=== PATIENT | male | born 1965 | race Two or more races ===

== ENCOUNTER 2021-08-31 12:04 | Outpatient (REF) | payer OTHER, SELFPAY ==
[2021-08-31 13:51] LABS: MANUAL DIFF FLAG NO
[2021-08-31 13:55] LABS: Basophils Percent Auto 0.3 % (0-2); Eosinophils Absolute Auto 0.1 X10*3/uL (0.0-0.4); Eosinophils Percent Auto 2.7 % (0-4); Hematocrit 44.3 % (42.0-52.0); Hemoglobin 15.4 g/dl (14.0-18.0); Lymphocytes Absolute Auto 1.2 X10*3/uL (1.2-4.9); Lymphocytes Percent Auto 39.9 % (20-40); Mean Corpuscular HGB Conc 34.8 g/dl (31.0-36.0); Mean Corpuscular Volume 89.3 fL (80.0-98.0); Mean Platelet Volume 10.7 fL (9.4-12.4); Monocytes Absolute Auto 0.2 X10*3/uL (0.1-1.2); Monocytes Percent Auto 7.9 % (2-11); Neutrophils Absolute Auto 1.4 x10*3/uL (2.0-8.3); Neutrophils Percent Auto 49.2 % (45-73); Platelet Count 227 X10*3/uL (160-400); Red Blood Count 4.96 X10*6/uL (4.60-5.80); Red Cell Distribution Width 11.7 % (11.0-16.0); White Blood Count 2.9 X10*3/uL (4.8-10.8)
[2021-08-31 14:17] LABS: Alanine Aminotransferase 28 U/L (0-40); Anion Gap 11 (12-20); Aspartate Amino Transferase 24 U/L (5-37); Blood Urea Nitrogen 14 mg/dL (9-16); Calcium 10.2 mg/dL (8.4-10.2); Carbon Dioxide 33 mmol/L (22-29); Chloride 100 mmol/L (96-108); Cholesterol 199 mg/dL; Estimated Glomerular Filt Rate > 60; Glucose Fasting 94 mg/dL (60-99); HDL Cholesterol 48 mg/dL; LDL Cholesterol Calculated 135 mg/dl; Sodium 140 mmol/L (135-145); Triglycerides 80 mg/dL
[2021-08-31 14:42] LABS: PSA,Total (Free>4and<10) 1.69 ng/mL (0.00-4.00); Vitamin D 25-OH Total 79.3 ng/mL (>30)
== END 2021-08-31 12:05 | disposition home or self-care (01) ==
LOC: HO.HMGCLDS 12:04
PROVIDERS: PCP Internal Medicine; Visit Provider Internal Medicine
DX: Z00.00 Encounter for general adult medical examination without abnormal findings (principal); D72.819 Decreased white blood cell count, unspecified; I73.00 Raynaud's syndrome without gangrene; K21.9 Gastro-esophageal reflux disease without esophagitis; R97.20 Elevated prostate specific antigen [PSA]; H54.40 Blindness, one eye, unspecified eye; Z23 Encounter for immunization; Z12.5 Encounter for screening for malignant neoplasm of prostate
CPT/HCPCS: 36415; 80048; 80061; 82306; 84153; 84450; 84460; 85025

== ENCOUNTER 2022-12-12 14:20 | Outpatient (REF) | payer OTHER, SELFPAY ==
[2022-12-12 15:10] LABS: Influenza A PCR NEGATIVE (Negative); Influenza B PCR NEGATIVE (Negative); Resp Syncy Virus RNA Qual PCR NEGATIVE (Negative); SARS COV2 PCR INHOUSE NEGATIVE (Negative)
== END 2022-12-12 14:21 | disposition home or self-care (01) ==
LOC: HO.LNP 14:20
PROVIDERS: Visit Provider Hospitalist
DX: Z20.822 Contact with and (suspected) exposure to COVID-19 (principal); B34.9 Viral infection, unspecified
CPT/HCPCS: 0241U

== ENCOUNTER 2023-02-14 14:17 | Outpatient (REF) | payer OTHER, SELFPAY ==
--- NOTE | ~2023-02-14 | MR_ITS ---
MR BRAIN WITHOUT AND WITH CONTRAST CLINICAL INFORMATION: Sensorineural hearing loss. Tinnitus. COMPARISON: None available. TECHNIQUE: Multiplanar, multisequence MRI of the brain was obtained before and after the intravenous administration of 6.5 mL of Gadavist. FINDINGS: The inner ear structures including the cochlea, vestibules, and semicircular canals exhibit preserved CSF signal intensity with no pathologic enhancement. The vestibular aqueducts are not enlarged. Cranial nerves VII and VIII complexes are normal in morphology. No enhancing CP angle/retrocochlear lesion. There is no pathologic intracranial enhancement. Mild chronic microangiopathy. No acute infarct on diffusion-weighted imaging. No intracranial hemorrhage on the gradient series. No hydrocephalus, extra-axial surface collection, or herniation. The midline intracranial structures are normal. 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 No true Chiari malformation and no significant mass effect on the cervicomedullary junction. Craniocervical junction is normal. Osseous marrow signal intensity remains homogeneous. No significant soft tissue abnormality is appreciated. MR/MR head/brain wo/w con IMPRESSION: - No retrocochlear pathology. - Mild chronic microangiopathy.
== END 2023-02-14 14:18 | disposition home or self-care (01) ==
LOC: HO.MRI 14:17
PROVIDERS: PCP Internal Medicine; Visit Provider Otolaryngology
DX: H93.11 Tinnitus, right ear (principal); H90.3 Sensorineural hearing loss, bilateral
CPT/HCPCS: 70553; A9585

== ENCOUNTER 2023-03-19 07:16 | Emergency (ER) | payer OTHER, SELFPAY ==
[2023-03-19 07:32] VITALS: BP 154/95; PULSE 63; RESP 16; TEMP 36.5; O2SAT 99; BMI 25.7
--- NOTE | 2023-03-19 07:54 | PC.NURSE ---
Addendum entered by Tiny Byrd 03/19/23 08:01: NSR on monitor. Original Note: pt axox4, VSS, respirations even and unlabored, skin warm and dry, color appropriate to ethnicity. pt reports dizziness onset today; reports nausea denies vomiting/diarrhea. pt also reports ringing of R. ear; sx similar to previous episodes. neuros intact. iv established. at bedside. pt resting in stretcher; aware of plan of care and denies having questions/concerns at this time.
[2023-03-19 07:55] LABS: MANUAL DIFF FLAG NO
[2023-03-19 07:58] LABS: Basophils Percent Auto 0.3 % (0-2); Eosinophils Absolute Auto 0.2 X10*3/uL (0.0-0.4); Eosinophils Percent Auto 6.4 % (0-4); Hematocrit 43.2 % (42.0-52.0); Hemoglobin 15.4 g/dl (14.0-18.0); Imm Gran Abs Auto 0.01 X10*3/uL (0.00-0.03); Imm Gran Pct Auto 0.3 % (0.0-0.4); Lymphocytes Absolute Auto 1.3 X10*3/uL (1.2-4.9); Mean Corpuscular HGB Conc 35.6 g/dl (31.0-36.0); Mean Corpuscular Hemoglobin 31.3 pg (27.0-33.0); Mean Corpuscular Volume 87.8 fL (80.0-98.0); Mean Platelet Volume 9.8 fL (9.4-12.4); Monocytes Absolute Auto 0.2 X10*3/uL (0.1-1.2); Neutrophils Absolute Auto 1.7 x10*3/uL (2.0-8.3); Platelet Count 197 X10*3/uL (160-400); Red Blood Count 4.92 X10*6/uL (4.60-5.80); Red Cell Distribution Width 11.6 % (11.0-16.0); White Blood Count 3.5 X10*3/uL (4.8-10.8)
[2023-03-19 08:14] LABS: Alanine Aminotransferase 25 U/L (0-40); Albumin Level 4.1 g/dL (3.5-5.0); Alkaline Phosphatase 36 U/L (39-117); Anion Gap 16 (12-20); Aspartate Amino Transferase 21 U/L (5-37); Bilirubin Total 0.7 mg/dL (0.0-1.0); Blood Urea Nitrogen 14 mg/dL (9-16); Calcium 9.7 mg/dL (8.4-10.2); Carbon Dioxide 26 mmol/L (22-29); Chloride 103 mmol/L (96-108); Creatinine Clr Calc Pharmacy 86.6; Estimated Glomerular Filt Rate > 60; Glucose Random 118 mg/dL (60-115); Potassium 3.6 mmol/L (3.3-5.1); Sodium 141 mmol/L (135-145); Total Protein 6.7 g/dL (6.5-8.0)
[2023-03-19] MEDS: Meclizine HCl 25 MG TABLET PO (08:32)
[2023-03-19] MEDS: ondansetron HCL 4 MG/2 ML VIAL IVPUSH (08:32)
[2023-03-19] MEDS: 0.9 % Sodium Chloride 1,000 ML 999 ML IV (08:33)
--- NOTE | 2023-03-19 09:56 | ED.DIZZY ---
HPI - Dizziness General Chief Complaint: Dizziness Stated Complaint: Vertigo Nausea Time Seen by Provider: 03/19/23 07:27 Source: patient Mode of arrival: ambulatory Limitations: no limitations History of Present Illness HPI Narrative: 57-year-old male who presents emergency department for evaluation of vertigo. Patient states this morning when he open his eyes the room was spinning. He states the sensation was worse with standing. He states that he also had associated nausea with no vomiting. Patient states that this is 3rd episode of positional vertigo. His 1st episode was in December of 2022 the 2nd episode was on 03/12/2023. Patient states he also has decreased hearing in his right ear with tinnitus/ringing in the right ear. He was seen by ENT and had an MRI with and without contrast looking at the inner structures and the brain. There were no retrocochlear finding and there was mild chronic microangiopathic changes noted on the MRI of the brain. Related Data Previous Rx's Medication Instructions Recorded omeprazole 20 mg capsule,delayed 20 mg PO DAILY #30 caps 03/10/21 release Allergies Allergy/AdvReac Type Severity Reaction Status Date / Time No Known Allergies Allergy Verified 12/20/22 14:04 Review of Systems Review of Systems: Yes all other systems are reviewed and are negative PMFSH Past Medical History COUNT INCLUDES THE [facility] Narrative: Social history: He is , his Adeline is here in the emergency department with him. Patient denies tobacco use. He states he drinks on average 1 beer a day. He denies drug use. Medical History Blind left eye Chronic leukopenia Elevated PSA GERD without esophagitis Raynauds phenomenon Surgical History Hx of colonoscopy Hx of vasectomy Family History Family History Mother Breast cancer Diabetes mellitus Myocardial infarction Alzheimer's disease Brother Alcoholism Social History Social History Housing: House Alcohol intake: current Alcohol intake frequency: 0-2 drinks per day Alcohol type: beer Patient Tobacco Use Status: Never used Tobacco Smoked in Last 30 Days: No e-Cigarette/Vaping Use: Never Used Use of substances other than those prescribed or required for medical reasons: No Advance Directives: No service: No Current occupational status: employed Cognitive needs: No Hearing needs: No Vision needs: No Physical Exam Vital Signs: Vital Signs: Last Vital Signs Temp 97.7 F 03/19/23 07:32 Pulse 63 03/19/23 07:32 Resp 16 03/19/23 07:32 BP 154/95 H 03/19/23 07:32 Pulse Ox 99 03/19/23 07:32 O2 Del Method Room Air 03/19/23 07:32 BMI result Body Mass Index 25.7 Const: Other: Awake, alert, male patient, pleasant, cooperative, does appear to be in distress secondary to his vertigo, with minimal movement of his head has significant room spinning sensation Orientation/consciousness: oriented to person and oriented to place HEENT: Head: Yes normal to inspection, Yes normocephalic and Yes atraumatic Ears: external ears normal General nose exam: Normal external nose present Face and sinus: Yes normal facial exam Mouth: Normal oral and palatal mucosa present Throat: Yes posterior oropharynx normal Eyes: General: appearance normal, both eyes and all related structures Pupils: Equal, round and reactive pupils present Neck: Neck: Yes normal visual inspection, Yes no lymphadenopathy, Yes trachea midline and Yes supple Chest: Chest palpation & inspection: normal inspection of the chest and normal palpation of entire chest wall Resp: Effort & Inspection: normal respiratory effort and able to speak in complete sentences Auscultation: clear to auscultation bilaterally Cardio: Rate: regular rate Rhythm: regular rhythm Heart sounds: S1 normal heart sound present, S2 normal heart sound present and no murmurs GI: Inspection: Yes normal to inspection Palpation (GI): Soft to palpation, nontender and no guarding Auscultation: normal bowel sounds : General: Yes no CVA tenderness Back/Spine/Pelvis: Back: no CVA tenderness Skin: General skin exam: no rashes or lesions noted Neuro: General: oriented to person and oriented to place Cranial nerves: Yes CN's II-XII intact bilaterally and Yes Equal, round and reactive pupils present Cognition (Neuro): normal cognition Motor exam (neuro): 5/5 motor strength present throughout Coordination: [id number] test normal and [id number] test normal Extrem: General: Yes normal to inspection Psych: Appearance: grossly normal Speech and movement: Normal speech and movement present Affect: normal affect Attitude: cooperative Medications Administered Discontinued Medications Generic Name Dose Route Start Last Admin Trade Name Keerthi PRN Reason Stop Dose Admin Sodium Chloride 1,000 mls @ 999 mls/hr 03/19/23 07:41 03/19/23 08:33 Ns IV 03/19/23 08:41 999 mls/hr .Q1H1M STA Administration Meclizine HCl 25 mg 03/19/23 07:41 03/19/23 08:32 Meclizine Hcl 25 Mg Tablet PO 03/19/23 07:42 25 mg ONCE STA Administration Ondansetron HCl 4 mg 03/19/23 07:41 03/19/23 08:32 Ondansetron Hcl 4 Mg/2 Ml Vial IVPUSH 03/19/23 07:42 4 mg ONCE ONE Administration Medical Decision Making Medical Decision Making [facility] Narrative: 57-year-old male patient who presents emergency department for evaluation of episodic vertigo triggered by position change. This is the patient's 3rd episode. Patient woke up this morning and with minimal movement of his head while he was in bed he had a room spinning sensation. The patient also has decreased hearing in his right ear with tinnitus in his right ear and has been evaluated by ENT, he had a negative MRI of the brain and your structures. Patient's presentation is consistent with benign positional vertigo. Patient was given meclizine 25 mg orally, Zofran 4 mg IV. He was also ordered to get normal saline x1 L. I ordered a laboratory evaluation to include CBC and CMP. 1017: The patient's laboratory evaluation was unremarkable. Patient did get some improvement with the above treatment but still has vertigo symptoms therefore I ordered Ativan 0.5 mg IV. Patient will be discharged home and advised to take meclizine 25 mg 3 times a day for the next 3-4 days and then as needed He was also prescribe Zofran ODT 4 mg every 6 hours as needed for nausea and vomiting. I did advised to follow-up with his ENT physician for re-evaluation and to discus further treatment inverted, consider hydrochlorothiazide 25 mg daily to see if this improves symptoms if they become more chronic. Differential Diagnosis Differential Diagnoses: The differential diagnosis associated with the presentation includes Differential diagnosis includes was not limited to benign positional vertigo, Meniere's disease, electrolyte abnormality, anemia, cerebellar stroke Admission/Observation Consideration of admission/observation: Escalation of care including admission/observation considered Lab Data MDM Lab Attestation statement: I reviewed the patient's lab results. My interpretation patient's laboratory evaluation is as follows: WBC low at 3.5-this is chronic. Glucose elevated 118. There is no anemia or other significant electrolyte/LFT abnormalities. 03/19/23 07:51 03/19/23 07:51 Labs: Lab Results 03/19/23 03/19/23 Range/Units 07:51 07:51 WBC 3.5 L (4.8-10.8) X10*3/uL RBC 4.92 (4.60-5.80) X10*6/uL Hgb 15.4 (14.0-18.0) g/dl Hct 43.2 (42.0-52.0) % MCV 87.8 (80.0-98.0) fL MCH 31.3 (27.0-33.0) pg MCHC 35.6 (31.0-36.0) g/dl RDW 11.6 (11.0-16.0) % Plt Count 197 (160-400) X10*3/uL MPV 9.8 (9.4-12.4) fL Immature Gran % (Auto) 0.3 (0.0-0.4) % Neut % (Auto) 48.0 (45-73) % Lymph % (Auto) 38.0 (20-40) % [place] % (Auto) 7.0 (2-11) % Eos % (Auto) 6.4 H (0-4) % Baso % (Auto) 0.3 (0-2) % Lymph # (Auto) 1.3 (1.2-4.9) X10*3/uL [place] # (Auto) 0.2 (0.1-1.2) X10*3/uL Eos # (Auto) 0.2 (0.0-0.4) X10*3/uL Baso # (Auto) 0.0 (0.0-0.2) X10*3/uL Abs Immat Gran (auto) 0.01 (0.00-0.03) X10*3/uL Absolute Neuts (auto) 1.7 L (2.0-8.3) x10*3/uL Absolute Nucleated RBC 0.000 (0.0-0.012) X10*3/uL Nucleated RBC % (auto) 0.0 (0.0-0.2) /100WBC Sodium 141 (135-145) mmol/L Potassium 3.6 (3.3-5.1) mmol/L Chloride 103 (96-108) mmol/L Carbon Dioxide 26 (22-29) mmol/L Anion Gap 16 (12-20) BUN 14 (9-16) mg/dL Creatinine 0.89 (0.5-1.4) mg/dL Estim Creat Clear Calc 86.6 Estimated GFR > 60 Random Glucose 118 H (60-115) mg/dL Calcium 9.7 (8.4-10.2) mg/dL Total Bilirubin 0.7 (0.0-1.0) mg/dL AST 21 (5-37) U/L ALT 25 (0-40) U/L Alkaline Phosphatase 36 L (39-117) U/L Total Protein 6.7 (6.5-8.0) g/dL Albumin 4.1 (3.5-5.0) g/dL Discharge Plan Discharge Clinical Impression: Vertigo Tinnitus Qualifiers: Laterality: right Qualified Code(s): H93.11 - Tinnitus, right ear Meniere's disease Qualifiers: Laterality: right Qualified Code(s): H81.01 - Meniere's disease, right ear Patient Disposition: Home, Self-Care Instructions: Meniere Disease (ED) Additional Instructions: Your treated in the emergency department with with meclizine 25 mg orally, Zofran 4 mg IV and lorazepam 0.5 mg IV Your blood work was unremarkable. Take meclizine 25 mg pills, 1 pill every 6 hours for the next 4 day then every 6 hours as needed for dizziness. This is an [id number] medication Take Zofran ODT 4 mg pills, 1 pill dissolved in your mouth every 8 hours as needed for nausea and vomiting. You should follow-up with your ENT physician to discuss further treatment of your positional vertigo, hearing loss and ringing in the ear (tinnitus) Sometimes hydrochlorothiazide 25 mg once a day can help reduce recurrence of positional vertigo. Ask your ENT physician if this is a treatment that they would recommend for you. Follow-up with your doctor in 2 days. Please return to the emergency department if your symptoms get worse or if you develop any symptoms that are concerning to you. Prescriptions: No Action omeprazole 20 mg capsule,delayed release(DR/EC) 20 mg PO DAILY Qty: 30 0RF
== END 2023-03-19 11:19 | disposition home or self-care (01) ==
PROVIDERS: Emergency Provider Emergency Medicine Emergency Medical Services; PCP Internal Medicine
DX: H81.01 Meniere's disease, right ear (principal); H93.11 Tinnitus, right ear; Z79.899 Other long term (current) drug therapy
CPT/HCPCS: 36415; 80053; 85025; 96361; 96374; 99284; J2405

== ENCOUNTER 2023-06-07 12:28 | Outpatient (AMB) | payer OTHER, SELFPAY ==
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
[2023-06-07 12:12] VITALS: BP 127/76; PULSE 69; O2SAT 97; BMI 23.9
== END 2023-06-07 13:27 | disposition home or self-care (01) ==
PROVIDERS: Visit Provider Internal Medicine
DX: Z00.01 Encounter for general adult medical examination with abnormal findings (principal); D72.819 Decreased white blood cell count, unspecified; E78.5 Hyperlipidemia, unspecified; M77.11 Lateral epicondylitis, right elbow; M25.512 Pain in left shoulder; H54.40 Blindness, one eye, unspecified eye; H90.5 Unspecified sensorineural hearing loss
CPT/HCPCS: 99396

== ENCOUNTER 2024-06-23 10:51 | Outpatient (AMB) | payer OTHER, SELFPAY ==
--- NOTE | 2024-06-23 11:39 | A.OFFPC_ITS ---
Vital Signs 06/23/24 11:41 Height 5 ft 7 in Weight 149 lb BMI 23.3 BP 122/88 Blood Pressure Location Rt brachial Position Sitting Pulse 67 Pulse Source Pulse Oximeter Pulse Oximetry (%) 97 Oxygen Delivery Method Room Air Intake Visit Reasons: Annual PE Intake Note: Pt is here today for his PE Allergies No Known Allergies Allergy (Verified 06/23/24 11:46) Medication List - Last Reconciled 06/23/24 by Sasha Elizalde MD cholecalciferol (vitamin D3) 125 mcg PO DAILY omega 6-bqe-igy-fish oil 60-90-500 mg (Fish Oil) 1 cap PO DAILY omeprazole 40 mg PO DAILY Tobacco use date assessed: 06/23/24 Dental Screening Dental Screen Date: 06/23/24 Did you have a dental visit in the last 12 months?: Yes Did you have a dental problem in the last 6 months where you did not have access to dental care?: No Was dental information given to patient?: Patient has dentist HPI Annual PE HPI Details 58-year-old male with past medical histo ry for right-sided sensorineural hearing loss, dyslipidemia, blind in his left eye, chronic leukopenia, and GERD without esophagitis, here today for physical exam. Up-to-date with his screening colonoscopy ,done in [address] Go , with negative findings, repeat in 2027 Currently taking omeprazole 40 mg daily for chronic gastroesophageal reflux disease as seen on upper endoscopy done in 2019 Was seen by ENT last year referred for sensory neuro hearing loss and intermittent episodes of lightheadedness. MRI of the brain and internal auditory canal showed no intracranial ordered book cochlear pathology. Patient was supposed to be referred for hearing evaluation for heating in the right ear which would help restore asymmetry and help him with spatial awareness and orientation. Patient however has not heard from them since regarding an appointment and he has tried calling them and only was able to leave messages on the answering machine twice. Would like a referral back for further evaluation management. [facility] Medical History (Updated 06/23/24 @ 12:02 by Sasha Elizalde MD) Varicose veins of left lower extremity with pain Right-sided sensorineural hearing loss Dyslipidemia Blind left eye Elevated PSA Chronic leukopenia Raynauds phenomenon GERD without esophagitis Surgical History Hx of vasectomy Hx of colonoscopy Family History Mother Breast cancer Diabetes mellitus Myocardial infarction Alzheimer's disease Brother Alcoholism Social History Housing: House Alcohol intake: current Alcohol intake frequency: 0-2 drinks per day Alcohol type: beer Patient Tobacco Use Status: Never used Tobacco e-Cigarette/Vaping Use: Never Used service: No Current occupational status: employed Cognitive needs: No Hearing needs: No Vision needs: No Questionnaire PHQ-9 Over the last 2 weeks, how often have you been bothered by any of the following problems? 1. Little interest or pleasure in doing things: not at all 2. Feeling down, depressed, or hopeless: not at all 3. Trouble falling or staying asleep, or sleeping too much: not at all 4. Feeling tired or having little energy: not at all 5. Poor appetite or overeating: not at all 6. Feeling bad about yourself - or that you are a failure or have let yourself or your family down: not at all 7. Trouble concentrating on things, such as reading the newspaper or watching television: not at all 8. Moving or speaking so slowly that other people could have noticed. Or the opposite - being so fidgety or restless that you have been moving around a lot more than usual: not at all 9. Thoughts that you would be better off or of hurting yourself in some way: not at all Total score: 0 Depression Screening Interpretation: Negative Depression Screening Done: Yes 47375 - PHQ-9 Billing: Yes Source: Developed by Drs. Lester Means, Yuridia Peres, Martin Snyder and colleagues, with an educational nisha from [employer]. Thrive Questionnaire Date Thrive assessed: 06/23/24 I am a: Patient What is your living situation today?: I have a steady place to live Within the past 12 months, did the food you bought not last and you didn't have the money to get more?: Never true Within the past 12 months, did you worry whether your food would run out before you got money to buy more?: Never true Do you have trouble paying for medicines?: No Do you have trouble getting transportation to medical appointments?: No Do you have trouble paying your heating and electricity bill?: No Do you have trouble taking care of your child, family member or friend?: No Do you have trouble with day-to-day activities such as bathing, preparing meals, shopping, managing finances, etc.?: No Are you interested in more education?: I choose not to answer this question Please select the resources that you would like help with: None Currently or been in a relationship where the following occur: No concerns reported THRIVE Score: 0 AUDIT C Alcohol Use Questionnaire (AUDIT-C) 1. How often do you have a drink containing alcohol?: 2-3 times a week 2. How many drinks containing alcohol do you have on a typical day when you are drinking?: 1 or 2 3. How often do you have six or more drinks on one occasion?: Less than monthly Total Score: 4 MAYURI-7 AMB Questionnaire MAYURI-7 Date MAYURI - 7 assessed: 06/23/24 Feeling nervous, anxious, or on edge: 0 = Not at all Not being able to stop or control worryin = Not at all Worrying too much about different things: 0 = Not at all Trouble relaxin = Not at all Being so restless that it is hard to sit still: 0 = Not at all Becoming easily annoyed or irritable: 0 = Not at all Feeling afraid as if something awful might happen: 0 = Not at all Total MAYURI-7 score (0-4 normal; 5-9 mild; 10-14 moderate; 15-21 severe): 0 Source: Developed by Drs. Lester Means, Yuridia Peres, Martin Snyder and colleagues, with an educational nisha from [employer]. MAYURI-7 Assessment Billing MAYURI-7 Assessment Tool: MAYURI-7 Assessment 85574 Review of Systems Const Denies body aches, Denies fatigue, Denies fever(s), Denies headache(s) and Denies weakness Eyes Details: Blind left eye due to trauma Denies eye discharge and Denies itchy eyes ENT Reports as per HPI, Reports dizziness (Occasional), Denies headache(s), Denies nasal congestion, Denies nasal discharge and Denies sore throat Card Denies chest pain, Denies palpitations and Denies dyspnea Resp Denies chest congestion, Denies cough, Denies dyspnea and Denies wheezing GI Denies abdominal pain, Denies change in bowel habits and Denies heartburn Denies dysuria, Denies urinary frequency and Denies urinary urgency Musc Reports no additional complaints Skin/Breast Denies lesions and Denies rash Neuro Reports dizziness (Occasional), Denies headache(s) and Denies weakness Psych Reports no additional complaints Endo Denies fatigue, Denies polydipsia, Denies polyuria and Denies palpitations Farrukh/Lymph Denies easy bruising Aller/Immun Denies itchy eyes, Denies seasonal rhinorrhea and Denies wheezing Physical exam (Primary Care) Vital Signs: Last Vital Signs Pulse 67 06/23/24 11:41 BP 122/88 06/23/24 11:41 Pulse Ox 97 06/23/24 11:41 Oxygen Delivery Method Room Air 06/23/24 11:41 BMI result Body Mass Index 23.3 Tobacco/Smoking Status: Tobacco use Status Tobacco use date assessed 06/23/24 06/23/24 11:45 Patient Tobacco Use Status Never used Tobacco 06/23/24 11:45 e-Cigarette/Vaping Use Never Used 06/23/24 11:45 PHQ-9: PHQ-9 Score PHQ-9: Total score 0 06/26/24 14:33 Depression Screening Interpretation: Negative Thrive Assessment: Date of Thrive Assessment Date Thrive assessed 06/23/24 06/23/24 11:45 Currently or been in a relationship where the following occur: No concerns reported Advance Care Planning discussion: Completed/Scanned Date of discussion: 06/23/24 Who was present: patient Forms completed: Health Care Proxy Time spent: 16-45 minutes Actual minutes spent: 15 Const Orientation/consciousness: patient oriented x3 HENMT Ears: external ears normal, TM's normal bilaterally, EAC's normal and hearing grossly impaired on the right Face and sinus: Yes face symmetric Mouth: Normal oral and palatal mucosa present, oropharynx normal and moist mucous membranes Eyes Other: left cornea opacified , EOM full on right , Periorbital: periorbital findings normal Eyelids: Yes eyelids normal Conjunctivae: conjunctivae normal Sclerae: sclerae normal Neck Other: Supple , no lymphadenopathy palpated thyroid gland nonpalpable Chest Chest palpation & inspection: normal inspection of the chest Resp Auscultation: clear to auscultation bilaterally Cardio Other: S1-S2 present regular rate and rhythm GI Inspection: Yes normal to inspection Palpation (GI): Soft to palpation, nontender, no guarding and no masses Auscultation: normal bowel sounds Male General Exam: Yes normal external exam Back/Spine/Pelvis Back: No back tenderness Skin General skin exam: no rashes or lesions noted Neuro General: patient oriented x3, gait normal, tone normal, moves all extremities and no focal motor deficits Cranial nerves: Yes CN's II-XII intact bilaterally Cognition (Neuro): normal cognition Gait exam (Neuro): Normal gait present Motor exam (neuro): 5/5 motor strength present throughout Sensory Exam: double simultaneous stimulation for sensation normal Extrem Other: Engorged varicose veins on lateral aspect of left lower extremity, General: Yes normal to inspection, Yes full ROM, Yes no joint enlargement, Yes no pedal edema, Yes no calf tenderness and Yes normal gait Right upper extremity: no joint enlargement and elbow/forearm Details: tenderness Location: of the lateral epicondyle Left upper extremity: elbow/forearm Psych Appearance: grossly normal and well kempt Mental Status: mental status grossly normal Speech and movement: Normal speech and movement present Affect: normal affect Attitude: cooperative Thought process: Normal thought process present Thought content: Normal thought content present Coding Level of Care Code Est Pt Prev Care 40-64y(32411) Diagnoses Annual visit for general adult medical examination with abnormal findings Z00. GERD without esophagitis K21.9 Dyslipidemia E78.5 Sensorineural hearing loss (SNHL) of right ear, unspecified hearing status on contralateral side H90.5 Contralateral hearing status: unspecified Varicose veins of left lower extremity with pain I83.812 Intermittent lightheadedness R42 Additional Codes MAYURI-7 Assessment Billing - MAYURI-7 Assessment Tool: MAYURI-7 Assessment 77588 ([id number]) Vital Signs *Quality* - Advance Care Planning discussion: Completed/Scanned ([id number]) Vital Signs *Quality* - Time spent: 16-45 minutes ([id number]) Assessment & Plan Assessment & Plan (1) Annual visit for general adult medical examination with abnormal findings: Code(s): Z00.01 - Encounter for general adult medical examination with abnormal findings Plan: Will check appropriate labs up-to-date with regular dental visit every [address] Henderson for his regular eye exams. Take adequate calcium in diet and vitamin-D 3 at 2000 IU per cap once a day, in addition to weight- bearing exercises to help maintain good muscle tone and weight control. Instructed to do self testicular exam check for any mass. Up-to-date with his screening colonoscopy done in 2019. Up-to-date with Tdap and has had 1 pneumococcal vaccine but does not want to get flu or COVID vaccination, declines shingles vaccines to (2) GERD without esophagitis: Code(s): K21.9 - Gastro-esophageal reflux disease without esophagitis Category: Medical Plan: Taking omeprazole only as needed for heartburn symptoms (3) Dyslipidemia: Code(s): E78.5 - Hyperlipidemia, unspecified Category: Medical Plan: Fasting lipid panel ordered, continue Rupert 3 fatty acid supplement, reinforced importance of following a low-cholesterol diet. (4) Right-sided sensorineural hearing loss: Code(s): H90.5 - Unspecified sensorineural hearing loss Category: Medical Qualifiers: Contralateral hearing status: unspecified Qualified Code(s): H90.5 - Unspecified sensorineural hearing loss Plan: Referred back to Dr. Gunter for further evaluation management (5) Varicose veins of left lower extremity with pain: Code(s): I83.812 - Varicose veins of left lower extremity with pain Category: Medical Plan: Vascular consult ordered (6) Intermittent lightheadedness: Code(s): R42 - Dizziness and giddiness Plan: Referral back to ENT for further evaluation manage Orders: Orders Basic Metabolic Panel Fasting 06/23/24 E78.5 - Hyperlipidemia, unspecified, H90.5 - Unspecified sensorineural hearing loss, K21.9 - Gastro-esophageal reflux disease without esophagitis, Z00.01 - Encounter for general adult medical examination with abnormal findings, Z12.5 - Encounter for screening for malignant neoplasm of prostate, Z13.1 - Encounter for screening for diabetes mellitus Lipid Panel 06/23/24 E78.5 - Hyperlipidemia, unspecified, H90.5 - Unspecified sensorineural hearing loss, K21.9 - Gastro-esophageal reflux disease without esophagitis, Z00.01 - Encounter for general adult medical examination with abnormal findings, Z12.5 - Encounter for screening for malignant neoplasm of prostate, Z13.1 - Encounter for screening for diabetes mellitus PSA,Total (Free>4and<10) 06/23/24 E78.5 - Hyperlipidemia, unspecified, H90.5 - Unspecified sensorineural hearing loss, K21.9 - Gastro-esophageal reflux disease without esophagitis, Z00.01 - Encounter for general adult medical examination with abnormal findings, Z12.5 - Encounter for screening for malignant neoplasm of prostate, Z13.1 - Encounter for screening for diabetes mellitus Complete Blood Count Auto Diff 06/23/24 E78.5 - Hyperlipidemia, unspecified, H90.5 - Unspecified sensorineural hearing loss, K21.9 - Gastro-esophageal reflux disease without esophagitis, Z00.01 - Encounter for general adult medical examination with abnormal findings, Z12.5 - Encounter for screening for malignant neoplasm of prostate, Z13.1 - Encounter for screening for diabetes mellitus Vitamin D 25-OH Total 06/23/24 E78.5 - Hyperlipidemia, unspecified, H90.5 - Unspecified sensorineural hearing loss, K21.9 - Gastro-esophageal reflux disease without esophagitis, Z00.01 - Encounter for general adult medical examination with abnormal findings, Z12.5 - Encounter for screening for malignant neoplasm of prostate, Z13.1 - Encounter for screening for diabetes mellitus Referrals Vascular Surgery Referral I83.812 - Varicose veins of left lower extremity with pain Ear/Nose/Throat Referral H90.5 - Unspecified sensorineural hearing loss, R42 - Dizziness and giddiness
[2024-06-23 11:41] VITALS: BP 122/88; PULSE 67; O2SAT 97; BMI 23.3
== END 2024-06-23 12:08 | disposition home or self-care (01) ==
PROVIDERS: PCP Internal Medicine; Visit Provider Internal Medicine
DX: Z00.01 Encounter for general adult medical examination with abnormal findings (principal); K21.9 Gastro-esophageal reflux disease without esophagitis; E78.5 Hyperlipidemia, unspecified; H90.5 Unspecified sensorineural hearing loss; I83.812 Varicose veins of left lower extremity with pain; R42 Dizziness and giddiness; Z00.00 Encounter for general adult medical examination without abnormal findings

== ENCOUNTER → 2024-06-23 10:51 | Outpatient (BNVA) | payer OTHER, SELFPAY | PROVIDERS: PCP Internal Medicine; Visit Provider Internal Medicine | DX: Z00.01 Encounter for general adult medical examination with abnormal findings (principal); K21.9 Gastro-esophageal reflux disease without esophagitis; E78.5 Hyperlipidemia, unspecified; H90.5 Unspecified sensorineural hearing loss; I83.812 Varicose veins of left lower extremity with pain; R42 Dizziness and giddiness | CPT/HCPCS: 96127 ==

== ENCOUNTER 2024-06-23 12:12 | Outpatient (REF) | payer OTHER, SELFPAY ==
[2024-06-23 13:25] LABS: MANUAL DIFF FLAG NO
[2024-06-23 13:36] LABS: Basophils Percent Auto 1.1 % (0-2); Eosinophils Absolute Auto 0.1 X10*3/uL (0.0-0.4); Hematocrit 48.7 % (42.0-52.0); Hemoglobin 16.6 g/dl (14.0-18.0); Lymphocytes Absolute Auto 1.2 X10*3/uL (1.2-4.9); Lymphocytes Percent Auto 42.4 % (20-40); Mean Corpuscular HGB Conc 34.1 g/dl (31.0-36.0); Mean Corpuscular Hemoglobin 30.7 pg (27.0-33.0); Mean Corpuscular Volume 90.2 fL (80.0-98.0); Mean Platelet Volume 10.5 fL (9.4-12.4); Monocytes Absolute Auto 0.2 X10*3/uL (0.1-1.2); Monocytes Percent Auto 8.9 % (2-11); Neutrophils Absolute Auto 1.2 x10*3/uL (2.0-8.3); Neutrophils Percent Auto 44.6 % (45-73); Platelet Count 241 X10*3/uL (160-400); Red Cell Distribution Width 11.6 % (11.0-16.0); White Blood Count 2.7 X10*3/uL (4.8-10.8)
[2024-06-23 14:28] LABS: Anion Gap 11 (12-20); Blood Urea Nitrogen 10 mg/dL (9-16); Calcium 10.4 mg/dL (8.4-10.2); Carbon Dioxide 32 mmol/L (22-29); Chloride 102 mmol/L (96-108); Cholesterol 210 mg/dL (<200); Estimated Glomerular Filt Rate > 60; Glucose Fasting 103 mg/dL (60-99); HDL Cholesterol 49 mg/dL (>40); LDL Cholesterol Calculated 139 mg/dL (<100); PSA,Total (Free>4and<10) 1.65 ng/mL (0.00-4.00); Potassium 3.9 mmol/L (3.3-5.1); Sodium 141 mmol/L (135-145); Triglycerides 113 mg/dL (<150); Vitamin D 25-OH Total > 154.2 ng/mL (>30)
== END 2024-06-23 12:13 | disposition home or self-care (01) ==
LOC: HO.HMGCLDS 12:12
PROVIDERS: PCP Internal Medicine; Visit Provider Internal Medicine
DX: Z00.01 Encounter for general adult medical examination with abnormal findings (principal); E78.5 Hyperlipidemia, unspecified; H90.5 Unspecified sensorineural hearing loss; K21.9 Gastro-esophageal reflux disease without esophagitis; Z13.1 Encounter for screening for diabetes mellitus; Z12.5 Encounter for screening for malignant neoplasm of prostate
CPT/HCPCS: 36415; 80048; 80061; 82306; 84153; 85025

== ENCOUNTER 2024-07-09 10:17 | Outpatient (AMB) | payer OTHER, SELFPAY ==
--- NOTE | 2024-07-09 10:18 | MHC.OFFVIS ---
Intake Visit Reasons: [facility] referral for VV of left LE w/ pain Intake Note: New patient presents for VV of LE w/pain. Patient states he has a dull pain on his left leg as well as cramping. Allergies No Known Allergies Allergy (Verified 07/09/24 10:20) HPI HPI [facility] referral for VV of left LE w/ pain: Details: Shaq is presenting today as a referral from his PCP for varicose veins, left more than right. He states this has been going on for months, possibly years now. He states most recently is been more crampy and achy. It has been affecting their daily activities including working and standing. He denies any swelling of his lower extremities. It is noted more so in left leg. He does work at nights, standing the entire time. He is a nonsmoker and nondiabetic. He does have a history of Raynaud's, but states it is under control and a minimal case. Patient denies any previous venous surgery or injections. Patient denies any history of DVT/ PE. Patient denies any history of phlebitis. Trial of compression includes - nothing yet. They now present for vascular evaluation regarding their varicose veins. [facility] Medical History Varicose veins of left lower extremity with pain Right-sided sensorineural hearing loss Dyslipidemia Blind left eye Elevated PSA Chronic leukopenia Raynauds phenomenon GERD without esophagitis Surgical History Hx of vasectomy Hx of colonoscopy Family History Mother Breast cancer Diabetes mellitus Myocardial infarction Alzheimer's disease Brother Alcoholism Social History Housing: House Alcohol intake: current Alcohol intake frequency: 0-2 drinks per day Alcohol type: beer Patient Tobacco Use Status: Never used Tobacco e-Cigarette/Vaping Use: Never Used service: No Current occupational status: employed Cognitive needs: No Hearing needs: No Vision needs: No Review of Systems Const Reports as per HPI and Denies weakness ENT Reports Normal hearing present and Denies dizziness Card Reports as per HPI, Denies chest pain, Denies chest pain at rest, Denies chest pain with activity, Denies dyspnea and Denies dyspnea on exertion Resp Reports as per HPI, Denies cough, Denies dyspnea and Denies dyspnea on exertion GI Reports as per HPI, Denies abdominal pain, Denies nausea and Denies vomiting Musc Denies numbness Skin/Breast Reports as per HPI, Denies erythema and Denies wounds Neuro Reports Normal hearing present, Denies dizziness, Denies numbness, Denies Sensory deficit (Neuro) and Denies weakness Psych Reports no additional complaints Endo Reports no additional complaints Physical Exam Const General: healthy appearing and no acute distress Orientation/consciousness: patient oriented x3 HEENT Head: Yes normal to inspection Ears: hearing grossly normal bilaterally Mouth: Normal oral and palatal mucosa present Resp Effort & Inspection: normal respiratory effort and able to speak in complete sentences Auscultation: clear to auscultation bilaterally Cardio Jugular venous distension: no JVD Rate: regular rate Rhythm: regular rhythm Heart sounds: S1 normal heart sound present and S2 normal heart sound present Bruits: no abdominal aortic bruits, no carotid bruits, no femoral bruits and no renal bruits Peripheral pulses: Peripheral pulses 2+ throughout GI Inspection: Yes normal to inspection Palpation (GI): No Abdominal aortic bruit present Skin General skin exam: no rashes or lesions noted Wounds: no wounds Hair: normal Neuro General: patient oriented x3 Cranial nerves: Yes Normal hearing present Cognition (Neuro): normal cognition Gait exam (Neuro): Normal gait present Motor exam (neuro): 5/5 motor strength present throughout Sensory Exam: No Sensory deficit (Neuro) Extrem Other: Left lower extremity: Significant tortuosity noted mid thigh medially extending down past the knee towards the lateral aspect of the mid smart. Not painful to palpation. Slight discoloration noted to the lower extremity. CEAP: C - 4 E - primary A - superficial P - reflux General: Yes normal to inspection, Yes full ROM, Yes capillary refill normal and Yes normal gait Assessment & Plan Assessment & Plan (1) Varicose veins of both lower extremities with inflammation: Code(s): I83.11 - Varicose veins of right lower extremity with inflammation; I83.12 - Varicose veins of left lower extremity with inflammation Category: Medical Plan: Shaq is presenting today with concerns for varicose veins which are now causing discomfort in pain. In short, the patient has evidence of venous insufficiency. I have discussed the pathophysiology with the patient. In addition I have provided informational material regarding venous disease to the patient. We have discussed conservative measures including compression, elevation, and exercise. I have also provided a handout regarding appropriate use of compression stockings and where to purchase good compression stockings as well. We discussed the importance of elevation (putting a pillow under his feet when sleeping during the day) and wearing compression stockings, especially at work when he is standing all night. I have taken the liberty of ordering venous insufficiency testing with the patient. They will follow up with me after testing. The patient had an opportunity to ask questions regarding the treatment plan. All questions were answered. No major barriers to understanding were identified. The patient expressed understanding and agreement with the above treatment plan. The patient is aware they should contact our office by phone for worsening of the current condition or the appearance of new symptoms. Thank you for allowing me to participate in the vascular care of this patient. If you have any questions or concerns regarding the treatment for the above condition please do not hesitate to contact me. The office telephone contact is [phone]. This note is constructed using voice recognition software. While every effort has been made to ensure accuracy, company tanker truck driver errors may have been included. Thank you for allowing me to participate in the care of your patient. Yours sincerely, BELÉN Owens Coding Level of Care Code New Pt New Pt Level 4 (15738) Patient Type New Diagnoses Varicose veins of both lower extremities with inflammation I83.11; I83.12
== END 2024-07-09 10:33 | disposition home or self-care (01) ==
LOC: HO.HVS 10:18
PROVIDERS: PCP Internal Medicine; Visit Provider Physician Assistant Surgical
DX: I83.11 Varicose veins of right lower extremity with inflammation (principal); I83.12 Varicose veins of left lower extremity with inflammation
CPT/HCPCS: 99204

== ENCOUNTER → 2024-07-09 10:17 | Outpatient (BNVA) | payer OTHER, SELFPAY | PROVIDERS: PCP Internal Medicine; Visit Provider Physician Assistant Surgical ==

== ENCOUNTER 2024-07-30 10:17 | Outpatient (REF) | payer OTHER, SELFPAY ==
--- NOTE | ~2024-07-30 | US_ITS ---
EXAMINATION: US VENOUS BILATERAL LOWER EXTREMITIES (REFLUX EXAM) CLINICAL INDICATION: Leg pain and varicose veins. COMPARISON: None available. TECHNIQUE: Color-flow triplex imaging and compression Doppler was performed to evaluate both the deep and the superficial systems bilaterally. To evaluate the superficial system, the examination was performed in the upright position. Color-flow Doppler ultrasound and compression ultrasound were utilized. In addition, maneuvers were utilized to demonstrate reflux. FINDINGS: 1. DEEP VENOUS ULTRASOUND OF THE RIGHT LOWER EXTREMITY: Respiratory variation, normal compression and augmented flow are noted in the right common femoral vein as well as the right popliteal vein and there is no evidence of deep venous thrombosis at these locations. There is no evidence of reflux in the deep system in either the common femoral vein or the popliteal vein. There is no evidence of a Parmar's cyst. 2. SUPERFICIAL ULTRASOUND WITH DOPPLER OF RIGHT LOWER EXTREMITY: The right great saphenous vein at the saphenofemoral junction measures 4 mm, at the proximal thigh 2 mm, at the mid thigh 2 mm, above the knee 2 mm, at the knee 2 mm, [id number] 2 mm, midcalf 2 mm and at the ankle measures 3 mm. Reflux is demonstrated in the mid thigh and [id number]-efq-gaic for 0.8 seconds. Duplicated Right Great Saphenous Vein: None. The right small saphenous vein measures 7 mm and shows no reflux. Accessory Vein of Giacomini: None. Incompetent Perforators: None. Varices Present: None. 3. DEEP VENOUS ULTRASOUND OF THE LEFT LOWER EXTREMITY: Respiratory variation, normal compression and augmented flow are noted in the left common femoral vein as well as the left popliteal vein and there is no evidence of deep venous thrombosis at these locations. There is no evidence of reflux in the deep system in either the common femoral vein or the popliteal vein. There is no evidence of a Parmar's cyst. 4. SUPERFICIAL ULTRASOUND WITH DOPPLER OF LEFT LOWER EXTREMITY: Left great saphenous vein at the saphenofemoral junction measures 6 mm, at the proximal thigh 5 mm, at the mid thigh 4 mm, above the knee 2 mm, at the knee 2 mm, [id number] 2 mm, midcalf 2 mm and at the ankle measures 3 mm. Reflux is present from the junction to the mid thigh with reflux times exceeding 3 seconds. Duplicated Left Great Saphenous Vein: There is a 2 mm medial accessory saphenous that does not reflux. The left small saphenous vein measures 2 mm and shows no reflux. Accessory Vein of Giacomini: None. Incompetent Perforators: None. Varices Present: There are refluxing varices seen measuring up to 0.3 cm. US/US venous insuf bilat IMPRESSION: 1. No evidence of reflux or thrombus in the common femoral veins or popliteal veins bilaterally. 2. The right great saphenous vein is competent. 3. The left great saphenous vein is incompetent from the junction to the mid thigh. 4. Both small saphenous veins are competent. Electronically signed by: Zachary Gamez MD 08/10/2024 12:41 PM [facility]
== END 2024-07-30 10:18 | disposition home or self-care (01) ==
LOC: HO.US 10:17
PROVIDERS: PCP Internal Medicine; Visit Provider Physician Assistant Surgical
DX: I83.11 Varicose veins of right lower extremity with inflammation (principal); I83.12 Varicose veins of left lower extremity with inflammation
CPT/HCPCS: 93970

== ENCOUNTER 2024-08-25 09:08 | Outpatient (AMB) | payer OTHER, SELFPAY ==
--- NOTE | 2024-08-25 09:38 | A.OFFVIS_ITS ---
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 Continues with cramping of his left lower extremity worse than right. He states since elevating his legs the achiness has gotten a little bit better. He denies any new complaints today. [facility] Medical History Varicose veins of left lower extremity with pain Right-sided sensorineural hearing loss Dyslipidemia Blind left eye Elevated PSA Chronic leukopenia Raynauds phenomenon GERD without esophagitis Surgical History Hx of vasectomy Hx of colonoscopy Family History Mother Breast cancer Diabetes mellitus Myocardial infarction Alzheimer's disease Brother Alcoholism Social History Housing: House Alcohol intake: current Alcohol intake frequency: 0-2 drinks per day Alcohol type: beer Patient Tobacco Use Status: Never used Tobacco e-Cigarette/Vaping Use: Never Used service: No Current occupational status: employed Cognitive needs: No Hearing needs: No Vision needs: No Review of Systems Const Reports as per HPI and Denies weakness ENT Reports Normal hearing present and Denies dizziness Card Reports as per HPI, Denies chest pain, Denies chest pain at rest, Denies chest pain with activity, Denies dyspnea and Denies dyspnea on exertion Resp Reports as per HPI, Denies cough, Denies dyspnea and Denies dyspnea on exertion GI Reports as per HPI, Denies abdominal pain, Denies nausea and Denies vomiting Musc Denies numbness Skin/Breast Reports as per HPI, Denies erythema and Denies wounds Neuro Reports Normal hearing present, Denies dizziness, Denies numbness, Denies Sensory deficit (Neuro) and Denies weakness Psych Reports no additional complaints Endo Reports no additional complaints Physical Exam Vital Signs: BMI result Body Mass Index 22.7 Const General: healthy appearing and no acute distress Orientation/consciousness: patient oriented x3 HEENT Head: Yes normal to inspection Ears: hearing grossly normal bilaterally Mouth: Normal oral and palatal mucosa present Resp Effort & Inspection: normal respiratory effort and able to speak in complete sentences Auscultation: clear to auscultation bilaterally Cardio Jugular venous distension: no JVD Rate: regular rate Rhythm: regular rhythm Heart sounds: S1 normal heart sound present and S2 normal heart sound present Bruits: no abdominal aortic bruits, no carotid bruits, no femoral bruits and no renal bruits Peripheral pulses: Peripheral pulses 2+ throughout GI Inspection: Yes normal to inspection Palpation (GI): No Abdominal aortic bruit present Skin General skin exam: no rashes or lesions noted Wounds: no wounds Hair: normal Neuro General: patient oriented x3 Cranial nerves: Yes Normal hearing present Cognition (Neuro): normal cognition Gait exam (Neuro): Normal gait present Motor exam (neuro): 5/5 motor strength present throughout Sensory Exam: No Sensory deficit (Neuro) Extrem Other: Left lower extremity: Significant tortuosity noted mid thigh medially extending down past the knee towards the lateral aspect of the mid smart. Not painful to palpation. Slight discoloration noted to the lower extremity. General: Yes normal to inspection, Yes full ROM, Yes capillary refill normal and Yes normal gait Results Reviewed Results Reviewed: Brief summary of venous insufficiency testing is as follows: right great saphenous vein: negative right small saphenous vein: negative right accessory vein: none present left great saphenous vein: positive SFJ, prox thigh, mid thigh. left small saphenous vein: negative left accessory vein: none present Please note there is no evidence of any venous aneurysms or significant tortuosity VV noted in posterior distal thigh and distal thigh. Assessment & Plan Assessment & Plan (1) Varicose veins of left lower extremity with pain: Code(s): I83.812 - Varicose veins of left lower extremity with pain Category: Medical Plan: Shaq is presenting today for a follow up to his venous insufficiency ultrasound. He was found to have venous insufficiency in the left greater saphenous vein. This patient has varicose veins with inflammation. They continue to be a source of discomfort for the patient. The patient has tried conservative treatment with compression, leg elevation and exercise program for over 3 months time. They have been compliant with all treatment. This has provided minimal relief for the patient. I do not anticipate this course of treatment will alter the underlying etiology. The patient has been scheduled for lower extremity venous treatment inclusive of --- left greater saphenous vein Venaseal. Risks, benefits, and complications of this procedure has been discussed in detail with the patient including but not limited to bleeding, infection, and the development of a DVT. The patient has demonstrated a clear understanding and has consented. We will schedule the patient as soon as possible. Thank you for allowing us to participate in this patient's care. If there are any questions or concerns please do not hesitate to contact us. Coding Level of Care Code Est Pt Level 4 (72434) Diagnoses Varicose veins of left lower extremity with pain I83.812
[2024-08-25 09:43] VITALS: BMI 22.7
== END 2024-08-25 10:14 | disposition home or self-care (01) ==
PROVIDERS: PCP Internal Medicine; Visit Provider Physician Assistant Surgical
DX: I83.812 Varicose veins of left lower extremity with pain (principal)
CPT/HCPCS: 99214

== ENCOUNTER 2024-10-16 09:24 | Outpatient (AMB) | payer OTHER, SELFPAY ==
--- NOTE | 2024-10-16 09:43 | A.OFFVIS_ITS ---
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 hearing loss Dyslipidemia Blind left eye Elevated PSA Chronic leukopenia Raynauds phenomenon GERD without esophagitis Surgical History (Reviewed 10/16/24 @ :43 by Gretchen Gibbs) Hx of vasectomy Hx of colonoscopy Family History (Reviewed 10/16/24 @ : by Gretchen Gibbs) Mother Breast cancer Diabetes mellitus Myocardial infarction Alzheimer's disease Brother Alcoholism Social History (Reviewed 10/16/24 @ : by Gretchen Gibbs) Housing: House Alcohol intake: current Alcohol intake frequency: 0-2 drinks per day Alcohol type: beer Patient Tobacco Use Status: Never used Tobacco e-Cigarette/Vaping Use: Never Used service: No Current occupational status: employed Cognitive needs: No Hearing needs: No Vision needs: No Office Procedures Vascular Office Procedure Details Details: Diagnosis: Varicose veins with inflammation of left leg Procedure: Endovenous radiofrequency ablation of the left great saphenous v ein(s) of the lower extremity. Anesthesia: Local infiltration 5 cc, Tumescent 200 cc. Estimated Blood Loss: minimal Specimen: Varicose veins The patient was transferred to the procedure suite and the insufficient saphenous vein was mapped by ultrasound and diagrammed on the overlying skin. The depth and diameter of the vein(s) to be treated was documented. The varicose tributary veins and suitable access sites were identified and mapped as well. The patient was then positioned supine on the procedure table. The affected limb was prepped and draped in the usual sterile fashion. The RF catheter was placed on the sterile field, flushed and wiped down, prepared, and connected by a sterile cable. The patient was placed in supine position and local anesthesia was instilled in the skin overlying the access site. A skin incision was made overlying the identified and mapped great saphenous vein entry site. The vein was accessed using ultrasound guidance and the Seldinger technique, a guide wire was introduced through the needle, which was then exchanged over the guide wire for a 6F sheath, which was secured in place. The guide wire was removed and the sheath was flushed. The RF catheter was placed into the vein through the sheath and preferentially, imaging was used to place the catheter tip just inferior to the superficial epigastric vein to preserve normal physiological flow in that vein. Additionally, it was confirmed by ultrasound guidance that the catheter tip was also placed a minimum of 1.5cm distal to the saphenofemoral junction. After the RF catheter position was verified by ultrasound, tumescent anesthesia was infiltrated, under ultrasound guidance, precisely into the perivenous compartment along the entire length of vein from the entry site to the saphenofemoral junction until a halo of fluid was noted around the vein. The patient was then placed in supine position to further exsanguinate the superficial venous system. After RF catheter position was again confirmed with ultrasound imaging, and under direct external compression along the length of the heating element, RF energy was applied. The vein was segmentally ablated by heating a 8 cm segment and then indexing the catheter forward by 7.5 cm until the treatment length is completed. Device temperature was maintained at 120 plus or minus 5 degrees C with an initial power level of 40W dropping to below 20W for each treatment. Total vein length treated 24 cm Total cycles of RF 4. Repeat ultrasound of the saphenous vein was performed, confirming successful treatment. The catheter and sheath were withdrawn and hemostasis established with direct pressure. After assuring hemostasis, the skin incision over the saphenous vein was closed with a bandage and a compression wrap, and/ or graduated compression stocking was applied from the level of the foot to the most proximal level of the thigh. 18558 - Endovenous RF, 1st Vein All charges added?: Procedure code (CPT) selection complete Assessment & Plan Assessment & Plan (1) Varicose veins of left lower extremity with inflammation: Comment: 10/16/2024 - left great saphenous vein radiofrequency ablation Code(s): I83.12 - Varicose veins of left lower extremity with inflammation Category: Medical Plan: See op note Coding Level of Care Code Procedure Only Diagnoses Varicose veins of left lower extremity with inflammation I83.12 CPT Codes Details - Vascular 1: 21511 - Endovenous RF, 1st Vein ([id number])
== END 2024-10-16 10:27 | disposition home or self-care (01) ==
PROVIDERS: PCP Internal Medicine; Visit Provider Surgery Vascular Surgery
DX: I83.12 Varicose veins of left lower extremity with inflammation (principal)
CPT/HCPCS: 36475

== ENCOUNTER → 2024-10-16 09:24 | Outpatient (BNVA) | payer OTHER, SELFPAY | PROVIDERS: PCP Internal Medicine; Visit Provider Surgery Vascular Surgery | DX: I83.12 Varicose veins of left lower extremity with inflammation (principal) | CPT/HCPCS: 36475; J2003; J2004 ==

== ENCOUNTER 2024-10-29 09:35 | Outpatient (AMB) | payer OTHER, SELFPAY ==
--- NOTE | 2024-10-29 09:49 | MHC.OFFVIS ---
Vital Signs 10/29/24 09:50 Height 5 ft 7 in Weight 145 lb BMI 22.7 Intake Visit Reasons: 2 week follow up Left GSV RFA 10/16/24 Intake Note: 2 week follow up Left GSV RFA 10/16/24. Pt states some dull pain over the treated area and stitch came out yesterday. Accompanied by: Self / Same As Patient Allergies No Known Allergies Allergy (Verified 10/29/24 09:53) HPI HPI 2 week follow up Left GSV RFA 10/16/24: Details: Very pleasant 58-year-old gentleman presents for follow-up status post left great saphenous vein ablation. Reports in general his leg feels better the varicosities that had been coursing through the anterior portion of his calf more so on the pretibial surface have decreased in size. Overall pain and discomfort have improved. He now presents for routine postprocedure follow-up. 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 hearing loss Dyslipidemia Blind left eye Elevated PSA Chronic leukopenia Raynauds phenomenon GERD without esophagitis Surgical History Hx of vasectomy Hx of colonoscopy Family History Mother Breast cancer Diabetes mellitus Myocardial infarction Alzheimer's disease Brother Alcoholism Social History Housing: House Alcohol intake: current Alcohol intake frequency: 0-2 drinks per day Alcohol type: beer Patient Tobacco Use Status: Never used Tobacco e-Cigarette/Vaping Use: Never Used service: No Current occupational status: employed Cognitive needs: No Hearing needs: No Vision needs: No Review of Systems Const All systems reviewed & are unremarkable except as noted in HPI and below Reports no additional complaints ENT Reports Normal hearing present Card Denies chest pain, Denies chest pain at rest, Denies chest pain with activity and Denies pedal edema Resp Denies cough GI Denies abdominal pain Musc Denies abnormal gait, Denies muscle cramps and Denies radiating pain into limb Skin/Breast Denies skin ulcer and Denies wounds Neuro Reports Normal hearing present and Denies abnormal gait Psych Reports no additional complaints Physical Exam Vital Signs: BMI result Body Mass Index 22.7 Const General: cooperative, healthy appearing and comfortable Orientation/consciousness: oriented to person, oriented to place and oriented to time HEENT Head: Yes normal to inspection Neck Neck: Yes normal visual inspection Carotids: no bruits Chest Chest palpation & inspection: normal inspection of the chest Resp Effort & Inspection: normal respiratory effort and able to speak in complete sentences Auscultation: clear to auscultation bilaterally, no crackles, no rales, no rhonchi and no wheezes Cardio Rate: regular rate Rhythm: regular rhythm Heart sounds: S1 normal heart sound present and S2 normal heart sound present Bruits: no carotid bruits Peripheral pulses: Peripheral pulses 2+ throughout GI Inspection: Yes normal to inspection Skin Wounds: no wounds Hair: normal Neuro General: oriented to person, oriented to place and oriented to time Cranial nerves: Yes CN's II-XII intact bilaterally and Yes Normal hearing present Cognition (Neuro): normal cognition Motor exam (neuro): 5/5 motor strength present throughout Extrem Other: venous exam: No significant superficial varicosities or spider telangiectasias, minimal edema General: No clubbing, No cyanosis and No edema Psych Appearance: grossly normal Mental Status: mental status grossly normal Speech and movement: Normal speech and movement present Assessment & Plan Assessment & Plan (1) Varicose veins of left lower extremity with inflammation: Comment: 10/16/2024 - left great saphenous vein radiofrequency ablation Code(s): I83.12 - Varicose veins of left lower extremity with inflammation Category: Medical Plan: The patient has done extremely well with all venous treatments. Patient's may often experience postprocedure phlebitic episodes and I have discussed with the patient use of warm compresses and NSAIDS if tolerated for pain discomfort. In addition, I have discussed continued conservative measures including use of compression, leg elevation, and exercise. The patient was also given an information sheet regarding appropriate use of compression stockings and future purchases. Thank you for allowing us to care for your patient with venous disease. Coding Level of Care Code Est Pt Level 3 (52211) Diagnoses Varicose veins of left lower extremity with inflammation I83.12
[2024-10-29 09:50] VITALS: BMI 22.7
== END 2024-10-29 10:07 | disposition home or self-care (01) ==
PROVIDERS: PCP Internal Medicine; Visit Provider Surgery Vascular Surgery
DX: I83.12 Varicose veins of left lower extremity with inflammation (principal)
CPT/HCPCS: 99213

== ENCOUNTER 2025-08-12 07:59 | Outpatient (REF) | payer OTHER, SELFPAY ==
--- OUTSIDE RECORDS SUMMARY | 2025-08-12 09:45 | XMS_ITS | Data Portability ---
Author Organization [place] - [facility], Allergy Address [address] [address] Care Team Providers Care Show Host/Hostess Name Role Phone JAYSON POTTER Referring Provider Assessment Encounter Date Assessment Date Assessment LastModified by Organization Details LastModified Time 08/26/2024 08/26/2024 The audiometric testing today has shown some progression of the mid and high-frequency sensorineural hearing loss. This is an idiopathic phenomenon in light of his normal MRI scan. Patient would be a great candidate to consider amplification in the right ear and he is eager to proceed with this. We will set him up for hearing aid evaluation. This will also help to reduce his awareness of the tinnitus in the right ear. [email or web address] Not available 08/26/2024 11:33:43 Plan of Treatment Reminders Order Date Submit Date Provider Last Modified By Organization Details Last Modified Time Details Appointments None record ed. Lab None record ed. Referral None record ed. Procedures None record ed. Surgeries None record ed. Imaging None record ed. Medication Orders None record ed. Patient TargetsNo targets recorded. Patient InstructionsNo instructions recorded. Reason for Referral None Reported. Results Created Date Observation Date Name Description Value Unit Range Abnormal Flag Note LastModifiedBy Organization Detail LastModifiedTime 08/26/20 24 audio gram No observ ation record ed. BARCODE Not Available 2023 14:46:00 08/27/20 24 audio gram No observ ation record ed. BARCODE Not Available 2023 16:08:59 Result Notes None recorded. Problems Name Problem SNOMED Code Status Onset Date Resolution Date Notes Provider Name and Address Organization Details Recorded Time Sensorine ural hearing loss of bilateral ears 793191442 Active 2022 Sensorine ural hearing loss, bilateral ; Note: Date Diagnosed : 12/27/2022 2:23 PM (H90.3) Not Available [facility] 4 02:40:09 Tinnitus of right ear [id number] 08 Active 2022 Tinnitus, right ear; Note: Date Diagnosed : 12/27/2022 2:23 PM (H93.11) Not Available [facility] 4 02:40:11 Dizziness and giddiness 161011778 Active 2023 JOSH BOYCE MD [address] [place] [address], [id number] , [facility] 11:31:56 Notes:Blindness, left eye, n ormal vision right eye Note: Date Diagnosed: 12/27/2022 3:19 PM (H54.42) Note: Date Diagnosed: 12/27/2022 3:19 PM (H54.42) Problem Notes None recorded. Procedures Surgical History Date Name Laterality Status Provider Name and Address Organization Details Recorded Time 08/26/2024 Comp Audio with Tymps - 20269 & 69792 completed ERICA BARONE [address] [place] [address], [place], [address], [facility] 08/26/2024 11:06:35 Imaging Results None recorded. Procedure Notes None recorded. Medical Equipment None Reported. Allergies No known drug allergies Medications Not known to be on any medication Vitals Date Recorded Body height Body weight Provider Name and Address Organization Details Last Updated DateTime 08/26/2024 170.18 cm 60134.75 g Zulma Moore [place] [facility] 08/26/2024 11:19:14 Social History None recorded. Functional Status None recorded. Mental Status None recorded. Family History Nothing Reported. Medical History Condition Response GERD/Reflux Y Past Encounters Encounter ID Performer Location Encounter Start Date Encounter Closed Date Diagnosis/Indication Diagnosis SNOMED-CT Code Diagnosis ICD10 Code Diagnosis IMO Codes Diagnosis Note [id number] JOSH BOYCE MD [facility] [address] [address] 08/26/2024 10:29:21 08/26/2024 11:34:40 Sensorineural hearing loss of bilateral ears 206072896 H90.3 Audiologic al evaluation results:Ri ght ear:Normal sloping to moderately -severe sensorineu ral hearing loss with excellent word recognitio n.Left ear:Normal sloping to mild sensorineu ral hearing loss with excellent word recognitio n.Tympanom etry:Right Ear:Type AdLeft Ear:Type A Tinnitus of right ear 48 22414592 108 H93.11 Dizziness and giddiness 226263368 R42 The short-live d episodes of lightheade dness may or may not be related to his underlying inner ear phenomenon . Fortunatel y they are uncommon. I have asked him to pay attention to potential triggers such as dehydratio n, lack of sleep, stress, or overly salty meals as these can trigger some dizziness and tinnitus changes with certain inner ear phenomena. [id number] ERICA BARONE [address] [address] 10/23/2024 12:50:29 10/26/2024 08:08:06 Sensorineural hearing loss of bilateral ears 112753777 H90.3 Health Concerns Section Related Observation LastModified by Organization Detai ls LastModified Time None Recorded Concern Status LastModified by Organization Details LastModified Time None Recorded Advance Directives Directive None Recorded Payers Insurance Date Sequence Insurance Name Policy Number Policy Benson Covered Member ID Benson Member ID Guarantor Name 08/26/2024 1 [facility] Shaq Muniz [id number] Shaq Muniz 10/20/2024 1 [facility] [id number] Shaq Muniz [id number] Shaq Muniz Notes Date Note Type Note Provider Name and Address Organization Details Recorded Time 08/26/2024 text/html Patient was evaluated in our office back in December 2022 for asymmetric sensorineural hearing loss affecting the right ear greater than left. Patient had MRI scan of the brain and internal auditory canals which was negative for retrocochlear pathology. 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 Patient reports that he had significant vertigo when he initially presented last year which has since resolved. Now he gets episodes of lightheadedness lasting anywhere from 5 minutes to 30 minutes, then will subside. This happens every 4 to 5 months or so. Patient notes a change in the character of his right sided tinnitus when the balance disturbance occurs, that it goes back to its usual baseline level. Patient is bothered by his hearing loss and wants to learn about amplification technology. JOSH BOYCE MD [address] [facility],[address], [address], [place] - [facility] 08/26/2024 11:34:28 10/23/2024 text/html Pt is a new user of hearing aids. Here today due to difficulty tinnitus and hearing. 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 Discussed type, technology levels, and manufacturers of hearing aids. Type of phone: did not ask.Might be interested in carecredit. Needs to discuss with his but if he moves forward he would like to order:Widex 330 or 440 in tech black for the right ear onlyReceiver: 1MDomes: tulip mediumOther: Paid today:Due at fittingTotal: ERICA BARONE [address] [facility],[place] [address], [place], [address], [place] - [facility] 10/23/2024 13:28:16
[2025-08-12 13:02] LABS: MANUAL DIFF FLAG NO
[2025-08-12 13:08] LABS: Hematocrit 45.6 % (42.0-52.0); Hemoglobin 15.6 g/dl (14.0-18.0); Imm Gran Abs Auto 0.01 X10*3/uL (0.00-0.03); Imm Gran Pct Auto 0.3 % (0.0-0.4); Lymphocytes Absolute Auto 1.0 X10*3/uL (1.2-4.9); Mean Corpuscular HGB Conc 34.2 g/dl (31.0-36.0); Mean Corpuscular Hemoglobin 30.9 pg (27.0-33.0); Mean Corpuscular Volume 90.3 fL (80.0-98.0); NRBC Abs Auto 0.000 X10*3/uL (0.0-0.012); NRBC Pct Auto 0.0 /100WBC (0.0-0.2); Platelet Count 199 X10*3/uL (160-400); Red Blood Count 5.05 X10*6/uL (4.60-5.80); White Blood Count 3.1 X10*3/uL (4.8-10.8)
[2025-08-12 13:26] LABS: Alanine Aminotransferase 59 U/L (0-40); Albumin Level 4.6 g/dL (3.5-5.0); Alkaline Phosphatase 42 U/L (39-117); Anion Gap 11 (12-20); Aspartate Amino Transferase 37 U/L (5-37); Blood Urea Nitrogen 16 mg/dL (9-16); Calcium 9.4 mg/dL (8.4-10.2); Carbon Dioxide 31 mmol/L (22-29); Chloride 104 mmol/L (96-108); Cholesterol 213 mg/dL (<200); Estimated Glomerular Filt Rate > 60; HDL Cholesterol 41 mg/dL (>40); Potassium 4.1 mmol/L (3.3-5.1); Sodium 142 mmol/L (135-145); Total Protein 6.9 g/dL (6.5-8.0); Triglycerides 127 mg/dL (<150)
[2025-08-12 13:47] LABS: PSA,Total (Free>4and<10) 1.91 ng/mL (0.00-4.00)
== END 2025-08-12 08:00 | disposition home or self-care (01) ==
LOC: HO.HMGCLDS 07:59
PROVIDERS: PCP Internal Medicine; Visit Provider Internal Medicine
DX: Z00.01 Encounter for general adult medical examination with abnormal findings (principal); I73.00 Raynaud's syndrome without gangrene; E78.5 Hyperlipidemia, unspecified; H90.5 Unspecified sensorineural hearing loss; H54.40 Blindness, one eye, unspecified eye; K21.9 Gastro-esophageal reflux disease without esophagitis; D72.819 Decreased white blood cell count, unspecified; Z13.1 Encounter for screening for diabetes mellitus; Z12.5 Encounter for screening for malignant neoplasm of prostate; Z13.31 Encounter for screening for depression; Z13.39 Encounter for screening examination for other mental health and behavioral disorders
CPT/HCPCS: 36415; 80053; 80061; 82306; 83036; 84153; 84443; 85025; 96127

== ENCOUNTER 2025-08-12 07:59 | Outpatient (AMB) | payer OTHER, SELFPAY ==
--- OUTSIDE RECORDS SUMMARY | 2025-08-12 08:07 | XMS_ITS | Patient Health Record ---
Author Organization [facility] Address [address] [place] [address] Care Team Providers Care Groundskeeping Yardman Name Role Phone Sasha Elizalde MD Primary Care Provider Fidencio Miguel Jr Unavailable [phone] Reason For Referral No Information Medications Medication SIG (Take, Route, Frequency, Duration) Notes Start Date End Date Status Omeprazole 20 MG Capsule Delayed Release 1 capsule Orally Once a day; Duration: 30 day(s) 02/11/2019 Active Multi Vitamin/Minerals - Tablet as directed Orally once a day Active Ranitidine HCl 150 MG Tablet as directed Oral Once a day Active Omeprazole 20 MG Capsule Delayed Release 1 capsule Orally Once a day; Duration: 30 day(s) 02/11/2019 Active amLODIPine Besylate 2.5 MG Tablet TAKE ONE TABLET BY MOUTH EVERY DAY Orally Once a day Active Immunizations Vaccine Route Administration Date Status Comme nts Influenza Unknown 02/11/2019 Refused Social History Tobacco Use: Social History Observation Description Date Details (start date - stop date) Never Smoker NA - NA Social History Drugs/Alcohol: Social Info Question Answer Notes Alcohol Screen Did you have a drink containing alcohol in the past year? Yes How often did you have a drink containing alcohol in the past year? 4 or more times a week (4 points) How many drinks did you have on a typical day when you were drinking in the past year? 1 or 2 drinks (0 point) How often did you have 6 or more drinks on one occasion in the past year? 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 Problems Problem Type SNOMED Code ICD Code Onset Dates Problem Status W/U Status Risk Notes Problem Colon cancer screening (939188082) Colon cancer screening (Z12.11) Active confirmed Problem Pre-procedure evaluation check (823855327) Encounter for other preprocedural examination (Z01.818) Active confirmed Problem Gastroesophageal reflux disease without esophagitis (374195615) Gastroesophageal reflux disease without esophagitis (K21.9) Active confirmed Plan Of Treatment Future Test Test Name Order Date COLONOSCOPY 05/30/2018 UPPER GI ENDOSCOPY 02/11/2019 Insurance Providers Payer Name Payer Address Payer Phone Subscriber Number Group Number Insured Name Patient Relationship to Insured Coverage Start Date Coverage End Date [employer] ([employer] [address] [place] [address] [id number] REJI NERI Self - patient is the insured Medical (General) History Medical History History ICD Code Denies IA,DM,CVA,Lung disease,renal dise ase Surgical History Surgery Date(Month/Year)
--- NOTE | 2025-08-12 08:12 | MHC.PC.OV ---
Vital Signs 08/12/25 08:14 Height 5 ft 7 in Weight 155 lb 6 oz BMI 24.3 BP 142/88 H Blood Pressure Location Rt brachial Position Sitting Respiration 16 Pulse 73 Pulse Source Pulse Oximeter Temp 98.2 F Temp Source Oral Pulse Oximetry (%) 97 Oxygen Delivery Method Room Air Intake Visit Reasons: Annual PE Intake Note: Pt is here today for his PE: last colonoscopy 08/13/18 E Learning Specialist Required: No Allergies No Known Allergies Allergy (Verified 08/12/25 08:31) Medication List - Last Reconciled 08/12/25 by Sasha Elizalde MD lactobacillus combination no.9 (Adult 50 Plus Probiotic) 4,000 mmu cells PO DAILY Tobacco use date assessed: 08/12/25 Dental Screening Dental Screen Date: 08/12/25 Did you have a dental visit in the last 12 months?: Yes Did you have a dental problem in the last 6 months where you did not have access to dental care?: No Was dental information given to patient?: Patient has dentist HPI Annual PE HPI Details The patient is a 59-year-old male presenting for his physical exam. He reports a history of right-sided hearing loss accompanied by tinnitus. He is supposed to have hearing aids but is unable to afford them. The patient has a history of a varicose vein on his left leg, for which he saw Dr. Blackwell in October and underwent left great saphenous vein ablation. . While the previous pain associated with the vein has resolved, he now experiences intermittent numbness of the entire left foot, which began approximately one month after the procedure. He has a diagnosis of Raynaud's phenomenon, which is familial as his niece also has it. He experiences white patches on his feet when exposed to cold, but atypically, not on his toes. 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 Past lab work showed slightly low neutrophils, but the differential was otherwise not concerning, and he is not anemic. Past medical history is also notable for hypercholesterolemia and an elevated PSA, for which he may have seen a urologist. He reports heartburn, for which he takes Tums or Pepcid. He had a screening colonoscopy in 2017 , which came back negative, with the next one due in 2027. He has no family history of colon cancer and denies blood in his stool. He is due for a tetanus shot, having last received one in 2011. He sees a dentist every six months. Socially, the patient does not use tobacco. He reports drinking alcohol, about a beer a night, and occasionally more at parties but denies binge drinking. 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-sided sensorineural hearing loss Dyslipidemia Blind left eye Elevated PSA Chronic leukopenia Raynauds phenomenon GERD without esophagitis Surgical History Hx of vasectomy Hx of colonoscopy Family History Mother Breast cancer Diabetes mellitus Myocardial infarction Alzheimer's disease Brother Alcoholism Social History Housing: House Alcohol intake: current Alcohol intake frequency: 0-2 drinks per day Alcohol type: beer Patient Tobacco Use Status: Never used Tobacco e-Cigarette/Vaping Use: Never Used service: No Current occupational status: employed Cognitive needs: No Hearing needs: No Vision needs: No Questionnaire PHQ-9 Over the last 2 weeks, how often have you been bothered by any of the following problems? 1. Little interest or pleasure in doing things: not at all 2. Feeling down, depressed, or hopeless: not at all 3. Trouble falling or staying asleep, or sleeping too much: not at all 4. Feeling tired or having little energy: not at all 5. Poor appetite or overeating: not at all 6. Feeling bad about yourself - or that you are a failure or have let yourself or your family down: not at all 7. Trouble concentrating on things, such as reading the newspaper or watching television: not at all 8. Moving or speaking so slowly that other people could have noticed. Or the opposite - being so fidgety or restless that you have been moving around a lot more than usual: not at all 9. Thoughts that you would be better off or of hurting yourself in some way: not at all Total score: 0 Depression Screening Interpretation: Negative Depression Screening Done: Yes 65827 - PHQ-9 Billing: Yes Source: Developed by Drs. Lester Means, Yuridia Peres, Martin Snyder and colleagues, with an educational nisha from [employer]. Thrive Questionnaire Date Thrive assessed: 08/12/25 I am a: Patient What is your living situation today?: I have a steady place to live Within the past 12 months, did the food you bought not last and you didn't have the money to get more?: Never true Within the past 12 months, did you worry whether your food would run out before you got money to buy more?: Never true Do you have trouble paying for medicines?: No Do you have trouble getting transportation to medical appointments?: No Do you have trouble paying your heating and electricity bill?: No Do you have trouble taking care of your child, family member or friend?: No Do you have trouble with day-to-day activities such as bathing, preparing meals, shopping, managing finances, etc.?: No Are you currently unemployed and looking for a job?: No Are you interested in more education?: I choose not to answer this question Please select the resources that you would like help with: None Currently or been in a relationship where the following occur: No concerns reported THRIVE Score: 0 AUDIT C Alcohol Use Questionnaire (AUDIT-C) 1. How often do you have a drink containing alcohol?: 2-3 times a week 2. How many drinks containing alcohol do you have on a typical day when you are drinking?: 1 or 2 3. How often do you have six or more drinks on one occasion?: Less than monthly Total Score: 4 MAYURI-7 AMB Questionnaire MAYURI-7 Date MAYURI - 7 assessed: 08/12/25 Feeling nervous, anxious, or on edge: 0 = Not at all Not being able to stop or control worryin = Not at all Worrying too much about different things: 0 = Not at all Trouble relaxin = Not at all Being so restless that it is hard to sit still: 0 = Not at all Becoming easily annoyed or irritable: 0 = Not at all Feeling afraid as if something awful might happen: 0 = Not at all Total MAYURI-7 score (0-4 normal; 5-9 mild; 10-14 moderate; 15-21 severe): 0 Source: Developed by Drs. Lester Means, Yuridia Peres, Martin Snyder and colleagues, with an educational nisha from [employer]. MAYURI-7 Assessment Billing MAYURI-7 Assessment Tool: MAYURI-7 Assessment 61692 Review of Systems Const All systems reviewed & are unremarkable except as noted in HPI and below Reports no additional complaints Eyes Details: blind OS, change in vision in OD ENT Reports Normal hearing present Card Denies chest pain, Denies chest pain at rest, Denies chest pain with activity and Denies pedal edema Resp Denies cough GI Denies abdominal pain Reports no additional complaints Musc Denies abnormal gait, Denies muscle cramps and Denies radiating pain into limb Skin/Breast Denies skin ulcer and Denies wounds Neuro Reports as per HPI, Reports Normal hearing present and Denies abnormal gait Psych Reports no additional complaints Endo Reports no additional complaints Farrukh/Lymph Reports no additional complaints Aller/Immun Reports no additional complaints Physical exam (Primary Care) Vital Signs: Last Vital Signs Temp 98.2 F 08/12/25 08:14 Pulse 73 08/12/25 08:14 Resp 16 08/12/25 08:14 BP 142/88 H 08/12/25 08:14 Pulse Ox 97 08/12/25 08:14 Oxygen Delivery Method Room Air 08/12/25 08:14 BMI result Body Mass Index 24.3 Tobacco/Smoking Status: Tobacco use Status Tobacco use date assessed 08/12/25 08/12/25 08:19 Patient Tobacco Use Status Never used Tobacco 08/12/25 08:13 e-Cigarette/Vaping Use Never Used 08/12/25 08:13 PHQ-9: PHQ-9 Score PHQ-9: Total score 0 08/16/25 01:25 Depression Screening Interpretation: Negative Thrive Assessment: Date of Thrive Assessment Date Thrive assessed 08/12/25 08/12/25 08:19 Currently or been in a relationship where the following occur: No concerns reported Const Orientation/consciousness: patient oriented x3 HENMT Ears: external ears normal, TM's normal bilaterally, EAC's normal and hearing grossly impaired on the right Face and sinus: Yes face symmetric Mouth: Normal oral and palatal mucosa present, oropharynx normal and moist mucous membranes Eyes Other: left cornea opacified , EOM full on right , Periorbital: periorbital findings normal Eyelids: Yes eyelids normal Conjunctivae: conjunctivae normal Sclerae: sclerae normal Neck Other: Supple , no lymphadenopathy palpated thyroid gland nonpalpable Chest Chest palpation & inspection: normal inspection of the chest Resp Auscultation: clear to auscultation bilaterally Cardio Other: S1-S2 present regular rate and rhythm GI Inspection: Yes normal to inspection Palpation (GI): Soft to palpation, nontender, no guarding and no masses Auscultation: normal bowel sounds Male General Exam: Yes normal external exam Back/Spine/Pelvis Back: No back tenderness Skin General skin exam: no rashes or lesions noted Neuro General: patient oriented x3, gait normal, tone normal, moves all extremities and no focal motor deficits Cranial nerves: Yes Normal hearing present Cognition (Neuro): normal cognition Gait exam (Neuro): Normal gait present Motor exam (neuro): 5/5 motor strength present throughout Sensory Exam: double simultaneous stimulation for sensation normal Extrem Other: Engorged varicose veins on lateral aspect of left lower extremity, General: Yes normal to inspection, Yes full ROM, Yes no joint enlargement, Yes no pedal edema, Yes no calf tenderness and Yes normal gait Right upper extremity: no joint enlargement and elbow/forearm Details: tenderness Location: of the lateral epicondyle Left upper extremity: elbow/forearm Psych Appearance: grossly normal and well kempt Mental Status: mental status grossly normal Speech and movement: Normal speech and movement present Affect: normal affect Attitude: cooperative Thought process: Normal thought process present Thought content: Normal thought content present Coding Level of Care Code Est Pt Prev Care 40-64y(39986) Diagnoses Annual visit for general adult medical examination with abnormal findings Z00. GERD without esophagitis K21.9 Raynauds phenomenon I73.00 Chronic leukopenia D72.819 Dyslipidemia E78.5 Sensorineural hearing loss (SNHL) of right ear, unspecified hearing status on contralateral side H90.5 Contralateral hearing status: unspecified Additional Codes MAYURI-7 Assessment Billing - MAYURI-7 Assessment Tool: MAYURI-7 Assessment 05450 ([id number]) PHQ-9 - 58235 - PHQ-9 Billing: Yes ([id number]) Assessment & Plan Assessment & Plan (1) Annual visit for general adult medical examination with abnormal findings: Code(s): Z00.01 - Encounter for general adult medical examination with abnormal findings Plan: Will check appropriate labs. Continue regular dental visit every 6 months and regular eye exams, at least every 2 years. Take adequate calcium in diet and vitamin-D 3 at 2000 IU per cap once a day, in addition to weight-bearing exercises to help maintain good muscle tone and weight control. Instructed to do self-testicular exam check for any mass. Up-to-date with his screening colonoscopy. Patient reminded to get his yearly flu vaccine and get an updated Tdap (2) GERD without esophagitis: Code(s): K21.9 - Gastro-esophageal reflux disease without esophagitis Category: Medical Plan: Currently not on any medication at present time. (3) Raynauds phenomenon: Code(s): I73.00 - Raynaud's syndrome without gangrene Category: Medical Plan: Advised to maintain extremities both hands and feet warm at all times. (4) Chronic leukopenia: Comment: Sees Dr. Fair Code(s): D72.819 - Decreased white blood cell count, unspecified Category: Medical Plan: Will continue to monitor (5) Dyslipidemia: Code(s): E78.5 - Hyperlipidemia, unspecified Category: Medical Plan: Fasting lipid panel ordered . Stressed adherence to low-cholesterol diet and regular exercise, at least 30 minutes 3 to 4 times a week. Advised patient to make healthy food choices, eat more fruits, vegetables, whole grains, wild caught fish and low-fat dairy. Limit amount of meat and fried or fatty food products, as well as processed foods and fast foods. (6) Right-sided sensorineural hearing loss: Code(s): H90.5 - Unspecified sensorineural hearing loss Category: Medical Qualifiers: Contralateral hearing status: unspecified Qualified Code(s): H90.5 - Unspecified sensorineural hearing loss Plan: Patient aware, does not want to buy hearing aid due to financial constraints, able to hear well unless in a crowded place Orders: Orders Lipid Panel 08/12/25 D72.819 - Decreased white blood cell count, unspecified, E78.5 - Hyperlipidemia, unspecified, H54.40 - Blindness, one eye, unspecified eye, H90.5 - Unspecified sensorineural hearing loss, I73.00 - Raynaud's syndrome without gangrene, K21.9 - Gastro-esophageal reflux disease without esophagitis, Z00.01 - Encounter for general adult medical examination with abnormal findings, Z12.5 - Encounter for screening for malignant neoplasm of prostate, Z13.1 - Encounter for screening for diabetes mellitus Hemoglobin A1c 08/12/25 D72.819 - Decreased white blood cell count, unspecified, E78.5 - Hyperlipidemia, unspecified, H54.40 - Blindness, one eye, unspecified eye, H90.5 - Unspecified sensorineural hearing loss, I73.00 - Raynaud's syndrome without gangrene, K21.9 - Gastro-esophageal reflux disease without esophagitis, Z00.01 - Encounter for general adult medical examination with abnormal findings, Z12.5 - Encounter for screening for malignant neoplasm of prostate, Z13.1 - Encounter for screening for diabetes mellitus Comprehensive [place]. Panel Fast 08/12/25 D72.819 - Decreased white blood cell count, unspecified, E78.5 - Hyperlipidemia, unspecified, H54.40 - Blindness, one eye, unspecified eye, H90.5 - Unspecified sensorineural hearing loss, I73.00 - Raynaud's syndrome without gangrene, K21.9 - Gastro-esophageal reflux disease without esophagitis, Z00.01 - Encounter for general adult medical examination with abnormal findings, Z12.5 - Encounter for screening for malignant neoplasm of prostate, Z13.1 - Encounter for screening for diabetes mellitus Complete Blood Count Auto Diff 08/12/25 D72.819 - Decreased white blood cell count, unspecified, E78.5 - Hyperlipidemia, unspecified, H54.40 - Blindness, one eye, unspecified eye, H90.5 - Unspecified sensorineural hearing loss, I73.00 - Raynaud's syndrome without gangrene, K21.9 - Gastro-esophageal reflux disease without esophagitis, Z00.01 - Encounter for general adult medical examination with abnormal findings, Z12.5 - Encounter for screening for malignant neoplasm of prostate, Z13.1 - Encounter for screening for diabetes mellitus Vitamin D 25-OH Total 08/12/25 D72.819 - Decreased white blood cell count, unspecified, E78.5 - Hyperlipidemia, unspecified, H54.40 - Blindness, one eye, unspecified eye, H90.5 - Unspecified sensorineural hearing loss, I73.00 - Raynaud's syndrome without gangrene, K21.9 - Gastro-esophageal reflux disease without esophagitis, Z00.01 - Encounter for general adult medical examination with abnormal findings, Z12.5 - Encounter for screening for malignant neoplasm of prostate, Z13.1 - Encounter for screening for diabetes mellitus TSH reflex Free T4 08/12/25 D72.819 - Decreased white blood cell count, unspecified, E78.5 - Hyperlipidemia, unspecified, H54.40 - Blindness, one eye, unspecified eye, H90.5 - Unspecified sensorineural hearing loss, I73.00 - Raynaud's syndrome without gangrene, K21.9 - Gastro-esophageal reflux disease without esophagitis, Z00.01 - Encounter for general adult medical examination with abnormal findings, Z12.5 - Encounter for screening for malignant neoplasm of prostate, Z13.1 - Encounter for screening for diabetes mellitus PSA,Total (Free>4and<10) 08/12/25 D72.819 - Decreased white blood cell count, unspecified, E78.5 - Hyperlipidemia, unspecified, H54.40 - Blindness, one eye, unspecified eye, H90.5 - Unspecified sensorineural hearing loss, I73.00 - Raynaud's syndrome without gangrene, K21.9 - Gastro-esophageal reflux disease without esophagitis, Z00.01 - Encounter for general adult medical examination with abnormal findings, Z12.5 - Encounter for screening for malignant neoplasm of prostate, Z13.1 - Encounter for screening for diabetes mellitus Medications: New blood pressure test kit-medium Check blood pressure once a day as directed 1 ea 0RF Elevated blood pressure reading
[2025-08-12 08:14] VITALS: BP 142/88; PULSE 73; RESP 16; TEMP 36.8; O2SAT 97; BMI 24.3
== END 2025-08-12 08:53 | disposition home or self-care (01) ==
LOC: HO.HMCC 08:00
PROVIDERS: PCP Internal Medicine; Visit Provider Internal Medicine
DX: Z00.01 Encounter for general adult medical examination with abnormal findings (principal); K21.9 Gastro-esophageal reflux disease without esophagitis; I73.00 Raynaud's syndrome without gangrene; D72.819 Decreased white blood cell count, unspecified; E78.5 Hyperlipidemia, unspecified; H90.5 Unspecified sensorineural hearing loss